=== PATIENT | female | born 1960 | race Caucasian/White ===

== ENCOUNTER 2018-10-02 10:16 | Day surgery (SDC) | payer OTHER ==
[2018-10-02] MEDS ORDERED: ROCURONIUM 50 MG INJ (11:47)
[2018-10-02] MEDS ORDERED: PROPOFOL 20 ML (11:47)
[2018-10-02] MEDS ORDERED: FENTAnyl 50 MCG/ML VIAL (11:47)
[2018-10-02] MEDS ORDERED: MIDAZOLAM 1 MG/ML 2 ML INJ (11:47)
[2018-10-02 12:24] LABS: INR 0.89; PROTIME 12.1 Sec (11.9-14.9); PT RATIO 0.9
[2018-10-02 12:25] LABS: PARTIAL THROMBOPLASTIN TIME 30.4 Sec (23.0-35.0)
[2018-10-02] MEDS ORDERED: CEFAZOLIN 1 GM INJ (12:49)
[2018-10-02] MEDS ORDERED: PHENYLephrine (100 MCG/ML) 10ML SYG (13:02)
[2018-10-02] MEDS ORDERED: NEOSTIGMINE 3 MG/3 ML SYRINGE (13:27)
[2018-10-02] MEDS ORDERED: GLYCOPYRROLATE 0.4 MG INJ (13:27)
[2018-10-02] MEDS ORDERED: hydrALAzine 20 MG INJ IV (13:30)
[2018-10-02] MEDS ORDERED: MEPERIDINE 25 MG INJ IV (13:30)
[2018-10-02] MEDS ORDERED: HYDROmorphONE 1 MG/5 ML IV SYRINGE IV ×3 (13:30)
[2018-10-02] MEDS ORDERED: METOCLOPRAMIDE 10 MG INJ IV (13:30)
[2018-10-02] MEDS ORDERED: OXYCODONE/ACETAMINOPHEN (5/325) TAB PO (13:30)
[2018-10-02] MEDS ORDERED: FENTAnyl 50 MCG/ML VIAL IV ×3 (13:30)
[2018-10-02] MEDS ORDERED: LABETALOL HCL 20MG INJ IV (13:30)
[2018-10-02] MEDS ORDERED: DIPHENHYDRAMINE 50 MG INJ IV (13:30)
[2018-10-02] MEDS ORDERED: EPHEDrine SULFATE 50 MG/5 ML SYG IV (13:30)
[2018-10-02] MEDS: EPINEPHrine 1 MG/ML 30 ML INJ INJ ×2 (13:37)
[2018-10-02] MEDS: BUPIVACAINE 0.5%/EPI (SDV) 30 ML INJ (13:37)
[2018-10-02] MEDS ORDERED: DEXAMETHASONE 4 MG/ML 5 ML INJ (13:39)
[2018-10-02] MEDS ORDERED: KETOROLAC 30 MG INJ (13:39)
[2018-10-02] MEDS ORDERED: ONDANSETRON 4 MG INJ (13:39)
[2018-10-02] MEDS ORDERED: METOCLOPRAMIDE 10 MG INJ (13:39)
[2018-10-02] MEDS: ONDANSETRON 4 MG INJ IV (14:45)
[2018-10-02] MEDS: OXYCODONE/ACETAMINOPHEN (5/325) TAB PO (15:13)
[2018-10-03 12:27] LABS: HSV 2 IGG ANTIBODY <0.90 index
== END 2018-10-02 15:59 | disposition home or self-care (01) ==
LOC: SDS 10:16
DX: S83.231D Complex tear of medial meniscus, current injury, right knee, subsequent encounter (principal); S83.281D Other tear of lateral meniscus, current injury, right knee, subsequent encounter; X58.XXXD Exposure to other specified factors, subsequent encounter; M94.261 Chondromalacia, right knee; E11.9 Type 2 diabetes mellitus without complications; Z79.84 Long term (current) use of oral hypoglycemic drugs
CPT/HCPCS: 29880; 82962; 85610; 85730; 86692